=== PATIENT | male | born 1960 | race Caucasian/White ===

== ENCOUNTER 2016-09-17 08:49 | Emergency (ER) | payer OTHER ==
[~2016-09-17] VITALS: Ht 167.6 cm; Wt 63.0 kg
[~2016-09-17 08:49] MED LIST: ASPIRIN 81 MG TAB ONE; NITROGLYCERIN (SL) 0.4 MG TAB ONE
[2016-09-17 09:03] VITALS: Ht 167.6 cm; Wt 63.0 kg
[2016-09-17 09:09] LABS: ADD SCAN DIFF NO
--- NOTE | 2016-09-17 09:09 | RADRPT ---
PROCEDURE: XR Chest. CLINICAL INDICATION: Code STEMI TECHNIQUE: Single frontal view of the chest was obtained COMPARISON: No. FINDINGS: The soft tissues are normal. The bony elements are normal. There is a poor inspiratory effort. Th e the heart, cardiomediastinal silhouette and hilar structures are normal. The pulmonary vasculature is There is a left-sided aorta. The lungs are clear. The costophrenic angles are normal. IMPRESSION: 1. There is no evidence of active cardiopulmonary disease allowing for poor inspiratory effort. RPTAT:AAJJ Physician Thien Date Time Electronically viewed and signed by Physician Thien on 09/17/2016 09:09 /
[2016-09-17 09:10] LABS: BASOPHIL # 0.1 10^3/ul (0.0-0.1); BASOPHILS % 0.3 % (0.0-2.0); EOSINOPHILS # 0.2 10^3/ul (0.0-0.5); EOSINOPHILS % 0.9 % (0.0-7.0); HEMATOCRIT 45.4 % (42.0-52.0); HEMOGLOBIN 15.5 g/dl (14.0-18.0); LYMPHOCYTES # 2.6 10^3/ul (0.8-2.9); LYMPHOCYTES % 15.4 % (15.0-51.0); MEAN CORPUSCULAR HEMOGLOBIN 31.9 pg (29.0-33.0); MEAN CORPUSCULAR HGB CONC 34.1 g/dl (32.0-37.0); MEAN CORPUSCULAR VOLUME 93.4 fl (82.0-101.0); MEAN PLATELET VOLUME 9.5 fl (7.4-10.4); MONOCYTE # 1.4 10^3/ul (0.3-0.9); MONOCYTES % 8.2 % (0.0-11.0); NEUTROPHIL # 12.7 10^3/ul (1.6-7.5); NEUTROPHILS % 74.9 % (39.0-77.0); PLATELET COUNT 323 10^3/UL (140-415); RED BLOOD COUNT 4.86 10^6/ul (4.70-6.10); RED CELL DISTRIBUTION WIDTH 12.4 % (11.5-14.5)
[2016-09-17 09:11] VITALS: TEMP 98.6
[2016-09-17] MEDS ORDERED: morphine 4 MG/ML VIAL IV STA (09:11)
[2016-09-17 09:23] LABS: INR 1.01; PROTIME 13.3 Sec (12.2-14.2)
[2016-09-17 09:24] LABS: PARTIAL THROMBOPLASTIN TIME 27.6 Sec (25.0-35.0)
[2016-09-17 09:28] LABS: CHLORIDE 101 mmol/L (97-110); POTASSIUM 4.3 mmol/L (3.5-5.1); SODIUM 136 mmol/L (135-144)
[2016-09-17 09:30] LABS: CREATINE KINASE 54 IU/L (23-200); CREATININE 0.69 mg/dl (0.61-1.24)
[2016-09-17] MEDS ORDERED: HEPARIN 1000 UNITS/ML 10 ML INJ IV ONE (09:30)
[2016-09-17 09:31] LABS: ANION GAP 11 (8-16); BLOOD UREA NITROGEN 13 mg/dl (7-20); CALCIUM 9.2 mg/dl (8.4-10.2); CARBON DIOXIDE 28 mmol/L (21-31); GLUCOSE 147 mg/dl (70-220)
[2016-09-17] MEDS ORDERED: ONDANSETRON 4 MG INJ IV STA (09:46)
[2016-09-17 09:53] LABS: CK-MB 0.28 ng/ml (0.0-2.4); TROPONIN-I < 0.012 ng/ml (0.00-0.12)
--- NOTE | 2016-09-17 09:57 | ERA ---
ER Documentation Chief Complaint Date/Time DATE: 09/17/16 TIME: 09:53 Chief Complaint BIB RA FOR EVAL OF CP X 12 HOURS PRESSURE LIKE. HPI HPI: Patient is a 55-year-old male who presents with sudden onset, constant, dull, severe, substernal chest pain since 8 PM last night. He states that the pain is worse when he takes a deep inspiration and when he lies flat. Pain radiates to bilateral shoulders. No radiation to the back or epigastrium. No radiation to the arms or neck. No nausea, vomiting, diaphoresis, cough, fever. Patient does report shortness of breath due to pain limiting inspiration. Patient denies prior history of similar symptoms. ROS All systems reviewed and are negative except as per history of present illness. Medications Home Meds Active Scripts Aspirin* (Aspirin*) 325 Mg Tablet, 325 MG PO DAILY, #7 TAB Prov:NEVIN OLIVEIRA MD 09/17/16 Allergies Allergies: Coded Allergies: No Known Allergy (Unverified , 09/17/16) PMhx/Soc Past medical history: None Past surgical history: None Social history: Tobacco smoker History of Surgery: No Anesthesia Reaction: No Hx Neurological Disorder: No Hx Respiratory Disorders: No Hx Cardiac Disorders: No Hx Psychiatric Problems: No Hx Miscellaneous Medical Probl: No Hx Alcohol Use: Yes Hx Substance Use: No Hx Tobacco Use: Yes Smoking Status: Current every day smoker FmHx Family History: No coronary disease, No diabetes Physical Exam Vitals Vital Signs Date Time Temp Pulse Resp B/P Pulse Ox O2 Delivery O2 Flow Rate FiO2 09/17/16 13:00 85 18 115/76 100 Nasal Cannula 3.0 09/17/16 11:00 89 20 112/80 100 Nasal Cannula 3.0 09/17/16 10:00 83 18 142/75 100 Nasal Cannula 3.0 09/17/16 10:00 90 19 107/74 100 Nasal Cannula 3.0 09/17/16 09:30 89 16 122/90 100 Nasal Cannula 3.0 09/17/16 09:11 98.6 101 20 137/97 100 Nasal Cannula 3.0 09/17/16 09:09 Nasal Cannula 3 09/17/16 09:03 94 20 137/97 97 Physical Exam Const: Alert, appears in mild pain Head: Atraumatic Eyes: Normal Conjunctiva ENT: Normal External Ears, Nose and Mouth. Neck: Full range of motion. No meningismus. Resp: Clear to auscultation bilaterally Cardio: Regular rate and rhythm, no murmurs, no gallop, pulses equal and 4 extremities Abd: Soft, non tender, non distended. No pulsatile mass Skin: No petechiae or rashes Back: No midline or flank tenderness Ext: No cyanosis, or edema Neur: Awake and alert, cranial nerves II through XII intact bilaterally, strength and sensation intact in 4 extremities Psych: Normal Mood and Affect Result Diagram: 09/17/16 0859 09/17/16 0859 Results 24 hrs Laboratory Tests Test 09/17/16 08:59 09/17/16 09:14 White Blood Count 17.010^3/ul Red Blood Count 4.8610^6/ul Hemoglobin 15.5g/dl Hematocrit 45.4% Mean Corpuscular Volume 93.4fl Mean Corpuscular Hemoglobin 31.9pg Mean Corpuscular Hemoglobin Concent 34.1g/dl Red Cell Distribution Width 12.4% Platelet Count 33216^3/UL Mean Platelet Volume 9.5fl Neutrophils % 74.9% Lymphocytes % 15.4% Monocytes % 8.2% Eosinophils % 0.9% Basophils % 0.3% Nucleated Red Blood Cells % 0.0/100WBC Neutrophils # 12.710^3/ul Lymphocytes # 2.610^3/ul Monocytes # 1.410^3/ul Eosinophils # 0.210^3/ul Basophils # 0.110^3/ul Nucleated Red Blood Cells # 0.010^3/ul Prothrombin Time 13.3Sec Prothrombin Time Ratio 1.0 INR International Normalized Ratio 1.01 Activated Partial Thromboplast Time 27.6Sec Sodium Level 136mmol/L Potassium Level 4.3mmol/L Chloride Level 101mmol/L Carbon Dioxide Level 28mmol/L Anion Gap 11 Blood Urea Nitrogen 13mg/dl Creatinine 0.69mg/dl Glucose Level 147mg/dl Calcium Level 9.2mg/dl Creatine Kinase 54IU/L Creatine Kinase Index 0.5 Creatinine Kinase MB (Mass) 0.28ng/ml Troponin I < 0.012ng/ml D-Dimer 343.60ng/ml D-Dimer Comment Current Medications Medications (Trade) Dose Ordered Sig/Emeli Route PRN Reason Start Time Stop Time Status Last Admin Dose Admin Morphine Sulfate (morphine) 4 mg ONCE STAT IV 09/17/16 09:11 09/17/16 09:16 DC 09/17/16 09:20 Heparin Sodium (Porcine) (Heparin (1000 Units/ml)) 3,800 unit ONCE ONCE IV 09/17/16 09:30 09/17/16 09:31 DC 09/17/16 09:22 Ondansetron HCl (Zofran Inj) 4 mg ONCE STAT IV 09/17/16 09:46 09/17/16 09:50 DC Hydromorphone HCl (Dilaudid) 1 mg ONCE STAT IV 09/17/16 12:13 09/17/16 12:14 DC Procedures/MDM EKG read by me: Time 857, rate 101 [place]: Normal Intervals: Normal ST-T waves: Nonspecific ST changes in inferior leads not consistent with STEMI Ectopy: No Poor R-wave progression Impression: Nonspecific changes, no STEMI, OK depressions in inferior leads and V3 Chest x-ray: No acute intra-thoracic abnormality MDM: Patient is a 55-year-old male who presents with 12 hours of constant chest pain. Initially because a code STEMI; however, on my review of serial EKGs there is no evidence of ST elevation. I discussed the EKGs and sent a copy to Dr. Vargas, who reviewed the EKG and agrees that there is no evidence of STEMI. The patient reports that pain is pleuritic in nature, and somewhat positional, worse when lying down. Troponin and CK-MB are negative in the setting of 12 hours of constant pain. D-dimer is negative and patient is low risk. There are no features concerning for aortic dissection. Chest x-ray is unremarkable. There is no abdominal pain or tenderness on exam. I plan on admitting the patient for further cardiac workup, but the patient refused admission. I discussed risks and benefits of admission and residual risk of OR, and the patient continues to refuse admission. Dr. Malik saw the patient in the ER, and it was his impression that the patient's symptoms are likely due to pericarditis. On further review of the EKG, there are signs of OK depression in inferior leads and in lead V3, with which are consistent with this diagnosis. I agree that the patient's symptoms do not sound anginal in nature and are more suggestive of pericarditis or pleurisy. Given negative cardiac markers and greater than 12 hours of symptoms and patient refusal of admission, I believe it is reasonable to discharge the patient with outpatient follow-up, which Dr. Malik and will arrange. I will give the patient full dose aspirin for symptoms until cardiology can evaluate the patient in 2 days. I have advised the patient and family they should return to the ER immediately for any new or worsening symptoms. Patient smokes cigarettes, but has no other cardiac risk factors. Patient does have leukocytosis, but no fever. This is nonspecific but could be seen in the setting of acute pericarditis. Departure Diagnosis: Primary Impression: Chest pain Qualified Code: R07.89 - Other chest pain Additional Impression: Pericarditis Qualified Code: I30.9 - Acute pericarditis, unspecified type Condition: NEVIN Clements MD Sep 17, 2016 09:57
[2016-09-17 11:15] LABS: D-DIMER 343.6 ng/ml (<460)
[2016-09-17] MEDS ORDERED: HYDROmorphONE 1 MG/ML SYG IV STA (12:13)
[2016-09-17 13:00] VITALS: BP 115/76; PULSE 85; RESP 18
[2016-09-17] MEDS ORDERED: ASPI325T4 PO (13:00)
== END 2016-09-17 13:28 | disposition home or self-care (01) ==
LOC: E/R 08:49
DX: R07.89 Other chest pain (principal); I30.9 Acute pericarditis, unspecified; F17.210 Nicotine dependence, cigarettes, uncomplicated
CPT/HCPCS: 71010; 80048; 82550; 82553; 84484; 85025; 85378; 85610; 85730; 93005; 96374; 96375; 99285; J1644; J2270; J2405; J1170

== ENCOUNTER 2016-10-01 14:06 | Observation (INO) | payer OTHER ==
[~2016-10-01] VITALS: Ht 165.1 cm; Wt 65.6 kg
[~2016-10-01 14:06] MED LIST changes: +ASPI325T4 PO; -ASPIRIN 81 MG TAB ONE; -NITROGLYCERIN (SL) 0.4 MG TAB ONE
[2016-10-01] MEDS ORDERED: SODIUM CHLORIDE 0.9% 1L BAG IV* STA (14:42)
[2016-10-01 14:47] LABS: ADD SCAN DIFF NO
[2016-10-01 14:52] LABS: BASOPHIL # 0.1 10^3/ul (0.0-0.1); BASOPHILS % 0.5 % (0.0-2.0); EOSINOPHILS # 0.2 10^3/ul (0.0-0.5); EOSINOPHILS % 1.2 % (0.0-7.0); HEMOGLOBIN 13.5 g/dl (14.0-18.0); LYMPHOCYTES # 2.7 10^3/ul (0.8-2.9); LYMPHOCYTES % 21.7 % (15.0-51.0); MEAN CORPUSCULAR HEMOGLOBIN 30.1 pg (29.0-33.0); MEAN CORPUSCULAR HGB CONC 32.1 g/dl (32.0-37.0); MEAN CORPUSCULAR VOLUME 93.5 fl (82.0-101.0); MEAN PLATELET VOLUME 9.8 fl (7.4-10.4); MONOCYTE # 0.8 10^3/ul (0.3-0.9); NEUTROPHIL # 8.8 10^3/ul (1.6-7.5); PLATELET COUNT 533 10^3/UL (140-415); RED BLOOD COUNT 4.49 10^6/ul (4.70-6.10); WHITE BLOOD COUNT 12.5 10^3/ul (4.8-10.8)
[2016-10-01] MEDS ORDERED: IBUPROFEN 600 MG TAB PO ONE (15:00)
[2016-10-01] MEDS ORDERED: CEFEPIME 1GM/50 ML (PMX) 50 ML IVPB ONE (15:00)
[2016-10-01] MEDS ORDERED: VANCOMYCIN 1 GM (PMX) 250 ML IVPB ONE (15:00)
[2016-10-01 15:01] LABS: ALBUMIN 3.8 g/dl (3.3-4.9)
[2016-10-01 15:02] LABS: CHLORIDE 97 mmol/L (97-110); INR 1.16; POTASSIUM 3.6 mmol/L (3.5-5.1); PROTIME 14.9 Sec (12.2-14.2); PT RATIO 1.2; SODIUM 142 mmol/L (135-144)
[2016-10-01 15:03] LABS: PARTIAL THROMBOPLASTIN TIME 32.9 Sec (25.0-35.0)
[2016-10-01 15:04] LABS: ANION GAP 20 (8-16); ASPARTATE AMINO TRANSFERASE 70 IU/L (15-46); BILIRUBIN,INDIRECT 0.3 mg/dl (0-1.1); BILIRUBIN,TOTAL 0.3 mg/dl (0.2-1.3); CARBON DIOXIDE 29 mmol/L (21-31); CREATININE 0.74 mg/dl (0.61-1.24)
[2016-10-01 15:05] LABS: ALANINE AMINOTRANSFERASE 153 IU/L (13-69); ALBUMIN/GLOBULIN RATIO 0.97; ALKALINE PHOSPHATASE 125 IU/L (42-121); BLOOD UREA NITROGEN 13 mg/dl (7-20); CALCIUM 9.5 mg/dl (8.4-10.2); GLUCOSE 164 mg/dl (70-220); TOTAL PROTEIN 7.7 g/dl (6.1-8.1)
[2016-10-01] MEDS ORDERED: AMO500 PO (15:09)
[2016-10-01] MEDS ORDERED: RANI150T9 PO (15:11)
[2016-10-01] MEDS ORDERED: PRED10TA PO (15:11)
[2016-10-01] MEDS ORDERED: FLUT16SP17 NASAL (15:12)
[2016-10-01] MEDS ORDERED: IOHEXOL 100 ML ONE (15:14)
[2016-10-01] MEDS ORDERED: SOD CHLORIDE 0.9% 100 ML ONE (15:14)
[2016-10-01 15:20] LABS: TROPONIN-I < 0.012 ng/ml (0.00-0.12)
[2016-10-01 15:34] LABS: ADD UMIC YES; URINE BILIRUBIN (Dip) NEGATIVE (NEGATIVE); URINE BLOOD (Dip) 1+ (NEGATIVE); URINE COLOR LT. YELLOW (YELLOW); URINE GLUCOSE (Dip) NEGATIVE (NEGATIVE); URINE KETONES (Dip) NEGATIVE (NEGATIVE); URINE LEUKOCYTE ESTERASE (Dip) NEGATIVE (NEGATIVE); URINE NITRITE (Dip) NEGATIVE (NEGATIVE); URINE TOTAL PROTEIN (Dip) TRACE (NEGATIVE); URINE UROBILINOGEN (Dip) 0.2 E.U./dL (0.1-1.0)
--- NOTE | 2016-10-01 15:36 | RADRPT ---
PROCEDURE: CT Pulmonary Angiogram. CLINICAL INDICATION: Chest pain and shortness of breath. TECHNIQUE: CT pulmonary angiogram and a CT scan of the chest with contrast was performed. The pat ient was scanned following the uncomplicated intravenous administration of 100 cc of Omnipaque-350 i ntravenous contrast. 2-D coronal reformatted images were obtained from the axial source images. In addition, 3-D post processing was performed. Total exam DLP is 450.41 mGy-cm. CTDIvol is 56.34 mG y. One or more of the following dose reduction techniques were used: Automated exposure control, ad justment of the mA and/or kV according to patient size, use of iterative reconstruction technique. COMPARISON: None available. FINDINGS: The pulmonary arteries are normal with no filling defect or lack of enhancement to suggest pulmonary artery embolism. There is mild atelectasis at the right lung base and moderate atelectasis in the left lower lobe pos teriorly. The lungs are otherwise clear with no other airspace or interstitial disease. There is no pulmonary nodule or mass lesion. There is no pneumothorax. There is no mediastinal or hilar lymphadenopathy or mass. There is a small right pleural effusion and moderate left pleural effusion. There is also a moderat e pericardial effusion. The heart size is normal. There is mild coronary artery calcification. The thoracic aorta is normal with no aneurysm or dissection. Images through the upper abdomen demonstrate normal visualized portions of the liver, spleen, and ad renals. There is a small benign cyst superiorly in the left kidney measuring 2.5 cm. There are mild degenerative changes of the spine. There is no fracture or lytic lesion. IMPRESSION: 1. Normal CT pulmonary angiogram with no evidence of pulmonary artery embolism. 2. Mild atelectasis at the right lung base and moderate atelectasis in the left lower lobe posterio rly. 3. Small right pleural effusion and moderate left pleural effusion. 4. Moderate pericardial effusion. 5. Mild coronary artery calcification. 6. Small benign cyst superiorly in the left kidney. 7. Mild degenerative changes spine. Call report: A call report of the findings was made to Dr. Soni on 10/01/2016 at 1540 hours. RPTAT: QQ .Merrill Sloan MD, Date Time Electronically viewed and signed by .Merrill Sloan MD, on 10/01/2016 15:36 .R/
[2016-10-01 15:42] LABS: BACTERIA,URINE FEW; MUCUS,URINE MODERATE; TRANSITIONAL EPI CELLS,URINE FEW; URINE RBCS 0-2 /HPF (0)
[2016-10-01 16:38] LABS: FREE T3 3.75 pg/ml (2.77-5.27)
[2016-10-01 16:52] LABS: THYROID STIMULATING HORMONE 0.865 MIU/L (0.465-4.680)
[2016-10-01] MEDS ORDERED: ASPIRIN 81 MG TAB PO ONE (17:00)
[2016-10-01 17:57] VITALS: TEMP 98.5
--- NOTE | 2016-10-01 18:21 | CONS ---
DATE OF ADMISSION: 10/01/2016 DATE OF CONSULTATION: 10/01/2016 REASON FOR CONSULTATION: Pericardial effusion. CHIEF COMPLAINT: Chest pain. HISTORY OF PRESENT ILLNESS: Thank you for this referral. History obtained from the patient and rev iew of the chart, discussion with Dr. Soni. ____ the old chart. This is a pleasant 55-year-ol d [place]is[place] gentleman with no past cardiac history who has been having chest pain developing over the past week. The patient apparently was here in the ER on September 17 for similar complaints of chest pain. At that time, EKG was concerning for ST elevation myocardial infarction, was felt to be most likely pericarditis. The patient did not need emergent cardiac catheterization at that time reporte dlmanisha; however, he did not want to stay for workup and he left. He came back today with complaint of shortness of breath and chest pain. Pain is worse apparently with breathing, is sharp. He is a poo r historian; however though. The patient's CT pulmonary angiogram was done which showed a moderate pericardial effusion as well as moderate pleural effusion. We were urgently contacted to evaluate the patient. PAST MEDICAL HISTORY: As above. SOCIAL HISTORY: The patient smokes. FAMILY HISTORY: No reported early coronary artery, denies any history rheumatological problem. MEDICATIONS AT HOME: As per medication reconciliation, personally reviewed. FAMILY HISTORY: No reported coronary artery disease. ALLERGIES: NO REPORTED ALLERGIES. REVIEW OF SYSTEMS: Otherwise negative. PHYSICAL EXAMINATION: VITAL SIGNS: Temperature 97.8, heart rate of 91, blood pressure 108/79, respiration rate of 20, sat urating 99%. HEENT: Normocephalic, atraumatic. No acute distress. CARDIOVASCULAR: Regular rate and rhythm, systolic murmur. PULMONARY: With no wheezes, mild rhonchi at the left base. GASTROINTESTINAL: Soft, nontender. EXTREMITIES: No significant lower extremity edema. NEUROLOGIC: Awake and alert. PSYCHIATRIC: Calm, pleasant. LABORATORY: WBC of 12.5, hemoglobin 13.5, platelets of 533, ESRD 75. Sodium 142, potassium 3.6, BU N of 13, creatinine 0.75, glucose of 164, ALT of 153, AST of 70. Troponin less than 0.012. TSH is 0.8. Free T4 is 1.17. CT pulmonary angiogram shows no evidence of pulmonary embolism. Mild atelec tasis in the right lung base and left lower lobe posteriorly. Small right pleural effusion, moderat e left pleural effusion, moderate pericardial effusion. Echocardiogram was personally reviewed, whi ch showed preserved LV systolic function. There is small to probably moderate in some areas, of per icardial effusion. No evidence of cardiac tamponade. EKG shows sinus tachycardia. ASSESSMENT AND PLAN: 1. Pericardial effusion, small to moderate per echo with no signs of tamponade. 2. Pleural effusion. 3. Chest pain secondary to pericardial effusion and pericarditis. 4. Hyperglycemia. 5. Elevated liver function tests. RECOMMENDATIONS: Patient will be placed on NSAIDs. Rheumatological workup needs to be done, which will be deferred to the primary hospitalist. I will start the patient on colchicine as well. The p atient has denied any bleeding complications to me. We will monitor him. If the breathing gets wor se, consider thoracentesis. Dictated By: DENISHA GREEN/FRANCHESCA Conf#: [id number] DID#: [id number]
[2016-10-01 18:42] VITALS: Ht 165.1 cm; Wt 65.6 kg
[2016-10-01 18:43] VITALS: BP 112/72; PULSE 86; RESP 18
[2016-10-01 18:48] VITALS: PULSE 90
[2016-10-01] MEDS: PANTOPRAZOLE (EC) 40 MG TAB PO SCH (18:54)
--- NOTE | 2016-10-01 19:20 | ERA ---
ER Documentation Chief Complaint Date/Time DATE: 10/01/16 TIME: 18:43 Chief Complaint cp x 5 days HPI 55-year-old man complains of sharp inspiratory chest pain 5 days worse with coughing. He's had cough and shortness of breath for about 1 week and his PMD prescribed amoxicillin and azithromycin which he states he has been using without relief. He was seen and evaluated here 2 weeks ago for chest pain, cardiology was consulted and physicians agreed that there was no indication for emergent PTCA and there were no ST elevations on EKG at that time. There was concern for acute pericarditis given the EKG findings and patient was admitted from the emergency department although he left against radical advice prior to transfer to the floor. Patient states his symptoms initially improved but then got worse about 5-7 days ago. He's had no calf or leg swelling, no dizziness, no loss of consciousness, no vomiting or diarrhea, no abdominal pain. ROS All systems reviewed and are negative except as per history of present illness. Medications Home Meds Reported Medications Fluticasone Propionate* (Fluticasone Propionate* Nasal) 50 Mcg/[place] - 16 Gm [place].susp, 1 SPRAY NASAL BID, #1 BOTTLE TO EACH NOSTRIL 10/01/16 Ranitidine Hcl* (Zantac*) 150 Mg Tablet, 150 MG PO BID, #60 TAB 10/01/16 Prednisone* (Prednisone*) 10 Mg Tab, 10 MG PO DAILY, TAB 3TAB-2 DAYS, 2TAB-2 DAYS, 1TAB-2 DAYS 10/01/16 Amoxicillin* (Amoxicillin*) 500 Mg Cap, 500 MG PO TID, #30 CAP 10/01/16 Discontinued Scripts Aspirin* (Aspirin*) 325 Mg Tablet, 325 MG PO DAILY, #7 TAB Prov:NEVIN OLIVEIRA MD 09/17/16 Allergies Allergies: Coded Allergies: No Known Allergy (Unverified , 10/01/16) PMhx/Soc Hypertension, gastritis Medical and Surgical Hx: pt denies Medical Hx, pt denies Surgical Hx History of Surgery: No Anesthesia Reaction: No Hx Neurological Disorder: No Hx Respiratory Disorders: No Hx Cardiac Disorders: No Hx Psychiatric Problems: No Hx Miscellaneous Medical Probl: No Hx Alcohol Use: Yes (occassional) Hx Substance Use: No Hx Tobacco Use: Yes (quit 5 days ago) Smoking Status: Former smoker FmHx Family History: No diabetes Physical Exam Vitals Vital Signs Date Time Temp Pulse Resp B/P Pulse Ox O2 Delivery O2 Flow Rate FiO2 10/01/16 15:30 97.8 91 20 108/79 99 Room Air 10/01/16 14:12 97.8 106 24 112/89 99 Physical Exam GENERAL: Well-developed, well-nourished, febrile, dyspneic HEENT: Moist mucous membranes, pink conjunctiva, no cervical spine tenderness or step-off deformities, no goiter, no jaundice or icterus, extraocular movements intact without pain. No submandibular induration, and no pharyngeal erythema NEURO: Alert and oriented 3, cranial nerves II through XII intact bilaterally, pupils equal round reactive to light, no focal deficits or facial asymmetry, sensation intact distally Strength 5/5 in upper and lower extremities bilaterally CARDIAC: Tachycardic and regular, no murmurs rubs or gallops LUNGS: Clear bilaterally no wheezing crackles or stridor ABDOMEN: Soft nontender, no guarding, no rigidity, no rebound, no psoas sign no obturator sign. Normoactive bowel sounds SKIN: Warm and dry to touch, no abrasions, contusions, or hematomas, no lacerations, no ecchymosis, no target lesions, and without ulcers EXTREMITIES: No clubbing cyanosis or edema, calves are bilaterally symmetrical, no Homans sign, no popliteal cord sign. Distal pulses equal and bilateral PSYCH: Normal affect without agitation or irritability Result Diagram: 10/01/16 1426 10/01/16 1426 Results 24 hrs Laboratory Tests Test 10/01/16 14:26 10/01/16 15:00 White Blood Count 12.510^3/ul Red Blood Count 4.4910^6/ul Hemoglobin 13.5g/dl Hematocrit 42.0% Mean Corpuscular Volume 93.5fl Mean Corpuscular Hemoglobin 30.1pg Mean Corpuscular Hemoglobin Concent 32.1g/dl Red Cell Distribution Width 12.0% Platelet Count 13900^3/UL Mean Platelet Volume 9.8fl Neutrophils % 70.0% Lymphocytes % 21.7% Monocytes % 6.0% Eosinophils % 1.2% Basophils % 0.5% Nucleated Red Blood Cells % 0.0/100WBC Neutrophils # 8.810^3/ul Lymphocytes # 2.710^3/ul Monocytes # 0.810^3/ul Eosinophils # 0.210^3/ul Basophils # 0.110^3/ul Nucleated Red Blood Cells # 0.010^3/ul Erythrocyte Sedimentation Rate 75mm/Hr Prothrombin Time 14.9Sec Prothrombin Time Ratio 1.2 INR International Normalized Ratio 1.16 Activated Partial Thromboplast Time 32.9Sec Sodium Level 142mmol/L Potassium Level 3.6mmol/L Chloride Level 97mmol/L Carbon Dioxide Level 29mmol/L Anion Gap 20 Blood Urea Nitrogen 13mg/dl Creatinine 0.74mg/dl Glucose Level 164mg/dl Lactic Acid Level 1.7mmol/L Calcium Level 9.5mg/dl Total Bilirubin 0.3mg/dl Direct Bilirubin 0.00mg/dl Indirect Bilirubin 0.3mg/dl Aspartate Amino Transf (AST/SGOT) 70IU/L Alanine Aminotransferase (ALT/SGPT) 153IU/L Alkaline Phosphatase 125IU/L Troponin I < 0.012ng/ml Total Protein 7.7g/dl Albumin 3.8g/dl Globulin 3.90g/dl Albumin/Globulin Ratio 0.97 Lipase 102U/L Thyroid Stimulating Hormone (TSH) 0.865MIU/L Free Thyroxine 1.17ng/dl Free Triiodothyronine (T3) pg/mL 3.75pg/ml Urine Color LT. YELLOW Urine Clarity SLIGHTLY CLOUDY Urine pH 5.5 Urine Specific [place] 1.020 Urine Ketones NEGATIVE Urine Nitrite NEGATIVE Urine Bilirubin NEGATIVE Urine Urobilinogen 0.2 E.U./dL Urine Leukocyte Esterase NEGATIVE Urine Microscopic RBC 0-2/HPF Urine Microscopic WBC 0-2/HPF Urine Transitional Epithelial Cells FEW Urine Bacteria FEW Urine Mucus MODERATE Urine Hemoglobin 1+ Urine Glucose NEGATIVE% Urine Total Protein TRACE Current Medications Medications (Trade) Dose Ordered Sig/Emeli Route PRN Reason Start Time Stop Time Status Last Admin Dose Admin Sodium Chloride 2000 ml 2,000 ml BOLUS OVER 2 HOURS STAT IV* 10/01/16 14:42 10/01/16 14:44 DC 10/01/16 15:13 Vancomycin HCl 250 ml @ 125 mls/hr ONCE ONCE IVPB 10/01/16 15:00 10/01/16 16:59 DC 10/01/16 15:45 Cefepime HCl (Maxipime 1gm/50 ml (Pmx)) 50 ml @ 100 mls/hr ONCE ONCE IVPB 10/01/16 15:00 10/01/16 15:29 DC 10/01/16 15:14 Ibuprofen (Motrin) 600 mg ONCE ONCE PO 10/01/16 15:00 10/01/16 15:01 DC 10/01/16 15:14 IV Flush 10 ml 10 ml STK-MED ONCE .ROUTE 10/01/16 15:14 10/01/16 15:15 DC Sodium Chloride 100 ml @ ud STK-MED ONCE .ROUTE 10/01/16 15:14 10/01/16 15:15 DC Iohexol (Omnipaque) 100 ml @ ud STK-MED ONCE .ROUTE 10/01/16 15:14 10/01/16 15:15 DC Aspirin (Aspirin) 81 mg ONCE ONCE PO 10/01/16 17:00 10/01/16 17:01 DC 10/01/16 17:21 Procedures/MDM IV line was established patient was placed on cardiac nurse practitioner rhythm strip revealed a sinus tachycardia at 120 bpm with upright P and T waves. Patient was febrile. Blood and urine cultures have been ordered results are pending and will follow-up. I administered 2 L normal saline intravenously, ibuprofen 600 mg by mouth, vancomycin 1 g IV and cefepime 1 g IV. EKG performed, read by me reveals a sinus tachycardia at 112 bpm, normal axis, narrow QRS complex, no concerning ST elevations or depressions noted. CT angiogram of the chest was performed is negative for pulmonary embolism although there was moderately sized pericardial effusion and bilateral pleural effusions. Please refer to radiologist dictation for full report. I ordered a stat echocardiogram to be read by on-call manager recovery Dr. Marroquin, and spoke to him again the patient's presentation and symptomatology. He kindly agreed to evaluate the patient at the bedside and consulted and post admission. CBC reveals a leukocytosis at 13 although family members state earlier white count was 17. Electrolytes were unremarkable, troponin was negative, lactic acid was low at 1.7. Liver function tests were unremarkable on the urine analysis was negative for infection. Thyroid panel was within normal limits. Cardiac Critical Care: Time: 40 minutes, this was time separate from other procedures. Treatments/Evaluations: Close monitoring and treatment of unstable vital signs, cardiorespiratory, and neurologic status, while maintaining tight balance of fluid, respiratory, and cardiac interventions. Patient admitted to telemetry setting under Dr. Malik Departure Diagnosis: Primary Impression: Acute pericardial effusion Additional Impressions: Pleural effusion Chest pain Qualified Code: R07.1 - Chest pain on breathing Condition: CHANELL Segundo MD Oct 01, 2016 19:20
[2016-10-01 20:00] VITALS: BP 100/68; PULSE 95; RESP 20
[2016-10-01 20:19] VITALS: BP 101/68; RESP 18
[2016-10-01 20:23] VITALS: PULSE 90
--- NOTE | 2016-10-01 20:30 | HP ---
Date/Time of Note Date/Time of Note DATE: 10/01/16 TIME: 20:18 Assessment/Plan VTE Prophylaxis VTE Prophylaxis Intervention: SCD's Assessment/Plan Assessment/Plan [facility] 55yo man with pericardial effusion and bilateral pleural effusions on CT angiogram. Troponin normal. No evidence for cardiac ischemia. Differential diagnosis includes viral infection (eg. coxsackie virus), tuberculosis, Gram- positive cocci, or atypical infection. Rheumatic disease in the lupus spectrum is a consideration, though there are really no other indications of established lupus. Malignant effusion is also a concern, though he doesn't have any recent weigh loss and the fever/sweats/leukocytosis would mitigate more toward infection or rheumatic disease. No evidence of tamponade for now, or of a focal pulmonary infiltrate. * Placed under telemetry observation status. * My thanks for Dr. Marroquin for his expeditious consult * Agree with trial of colchicine * Discontinue steroids * Also start on naproxen 375mg PO BID * Blood tests to include uric acid, Quantiferon-gold (in light of previous BCG vaccination), PSA, ALEXANDRA/dsDNA/Garcia antibodies. * Consider ultrasound-guided thoracentesis to send for culture tomorrow. * Hold off on empiric antibiotics. * SCDs for DVT prophylaxis. Famotidine for GI prophylaxis. Henrik Malik MD PhD [phone] HPI/ROS Admit Date/Time Admit Date/Time Oct 01, 2016 at 17:01 Hx of Present Illness Mr. Farley is a 55-year-old man familiar to me from his ER presentation two weeks ago with sustained positional chest pain. He has had some discomfort in the evenings ever since, with difficulty breathing and orthopnea that has disrupted his sleep. Last week his PCP started him on a course of azithromycin , which he said completely cleared up his symptoms. But the pain and dyspnea returned after the antibiotics were done, and he was then started on a course of amoxicillin and prednisone 10mg without improvement. Last night the pain was worse, and this morning even more pronounced. In retrospect he has been somewhat feverish and sweaty the past two weeks, but had no cough. He presented two weeks ago with 12 hours of constant chest pain, and was initially treated as a code STEMI. Dr. Vargas reviewed the EKGs, and felt that STEMI was unlikely. The pain was pleuritic in nature and somewhat positional, worse when lying down. Troponin and CK-MB were negative despite 12 hours of unremitting pain. D-dimer was negative, with low risk for pulmonary embolism. WBC were slightly elevated, but the chest x-ray showed no infiltrates or CHF. The patient refused admission then for monitoring, and I evaluated him in the ER. It was my impression that his EKG and symptoms were most compatible with pericarditis, with WI depression in the inferior leads and in lead V3. He was discharged home per his wishes with plans for cardiology outpatient follow-up. We talked about the smoking; he has no other cardiac risk factors. He attributed his illness to some exertion earlier this year, cutting down a tree that he thought had exposed him to considerable pollen. ROS No headache, visual change, nausea or other GI symptoms, dysuria or urethritis symptoms. PMH/Family/Social Social History Lived many years in [place] [facility], then in [place]. BCG vaccinations in both places. Large supportive family. Smoking Status: Current every day smoker Exam/Review of Systems Vital Signs Vitals Vital Signs Date Time Temp Pulse Resp B/P Pulse Ox O2 Delivery O2 Flow Rate FiO2 10/01/16 20:00 97.8 95 20 100/68 96 Room Air Exam Constitutional: alert, oriented, well developed Psych: nl mood/affect, no complaints Head: atraumatic, normocephalic Eyes: EOMI, PERRL, nl conjunctiva ENMT: mucosa pink and moist Neck: non-tender, supple, No bruits, No jvd, No masses, No nuchal rigidity, No thyromegaly Respiratory: other (Moderate dullness thru lower half of the left lung posteriorly, with decreased breath sounds but no change in vocal fremitus or egophony.) Cardiovascular: other (Tachycardic, with no murmur or rub.) Gastrointestinal: bowel sounds, nl liver, spleen, non-tender, soft, No ascites, No distended, No firm, No hepatomegaly, No mass, No rebound or guarding, No splenomegaly, No surgical scars, No tender Extremities: normal pulses, No calf tenderness, No clubbing, No cyanosis, No edema, No palpable cord, No pitting pedal edema, No tenderness Neurological: SYSTEMS REQUIREMENTS PLANNER II-XII intact, nl mental status, nl speech, nl strength Skin: diaphoresis, No ecchymosis, No laceration, No nl turgor, No puncture, No rash or lesions Lymph: nl lymph nodes Labs Result Diagram: 10/01/16 1426 10/01/16 1426 Medications Medications Current Medications Colchicine (Colchicine) 0.6 mg BID PO ; Start 10/01/16 at 21:00 Indomethacin (Indocin) 25 mg TID PO ; Start 10/01/16 at 21:00 Pantoprazole (Protonix Tab) 40 mg DAILY PO Last administered on 10/01/16t 18:54 ; Admin Dose 40 MG; Start 10/01/16 at 17:30 INA MALIK M.D. Oct 01, 2016 20:29
[2016-10-01] MEDS ORDERED: NACL 0.9% 3 ML SYG IV SCH (21:00)
[2016-10-01] MEDS ORDERED: HYDROCODONE/APAP (5/325) TAB PO PRN ×2 (21:00)
[2016-10-01] MEDS ORDERED: ACETAMINOPHEN 325 MG TAB PO PRN (21:00)
[2016-10-01] MEDS ORDERED: ONDANSETRON 4 MG TAB PO PRN (21:00)
[2016-10-01] MEDS ORDERED: LORAZEPAM 0.5 MG TAB PO PRN (21:00)
[2016-10-01] MEDS ORDERED: ZOLPIDEM 5 MG TAB PO PRN (21:00)
[2016-10-01] MEDS ORDERED: DOCUSATE SODIUM 100 MG CAP PO PRN (21:00)
[2016-10-01] MEDS: FLUTICASONE 0.05% 16 GM NAS SPRAY NASAL SCH (21:43)
[2016-10-01] MEDS: NAPROXEN 500 MG TAB PO SCH (21:44)
[2016-10-01] MEDS: FAMOTIDINE 20 MG TAB PO SCH (21:44)
[2016-10-01] MEDS: INDOMETHACIN 25 MG PO SCH (22:47)
[2016-10-01] MEDS: COLCHICINE 0.6 MG TAB PO SCH (22:47)
[2016-10-02] VITALS (10 sets, daily range): BP systolic 102–115; BP diastolic 58–75; PULSE 66–95; RESP 18–20
[2016-10-02 07:30] LABS: POTASSIUM 3.3 mmol/L (3.5-5.1)
[2016-10-02 07:33] LABS: CREATININE 0.65 mg/dl (0.61-1.24)
[2016-10-02 07:34] LABS: CALCIUM 9.1 mg/dl (8.4-10.2)
[2016-10-02 08:34] LABS: THYROID STIMULATING HORMONE 2.65 MIU/L (0.465-4.680)
[2016-10-02] MEDS: PANTOPRAZOLE (EC) 40 MG TAB PO SCH (09:24)
[2016-10-02] MEDS: FLUTICASONE 0.05% 16 GM NAS SPRAY NASAL SCH (09:24)
[2016-10-02] MEDS: COLCHICINE 0.6 MG TAB PO SCH (09:25)
[2016-10-02] MEDS: NAPROXEN 500 MG TAB PO SCH (09:25)
[2016-10-02] MEDS: FAMOTIDINE 20 MG TAB PO SCH (09:25)
[2016-10-02] MEDS: INDOMETHACIN 25 MG PO SCH ×2 (09:25→13:34)
[2016-10-02 09:45] LABS: ADD SCAN DIFF NO
[2016-10-02 09:54] LABS: BASOPHILS % 0.2 % (0.0-2.0); EOSINOPHILS # 0.3 10^3/ul (0.0-0.5); EOSINOPHILS % 2.3 % (0.0-7.0); HEMATOCRIT 37.3 % (42.0-52.0); HEMOGLOBIN 12.5 g/dl (14.0-18.0); LYMPHOCYTES # 3.1 10^3/ul (0.8-2.9); LYMPHOCYTES % 22.7 % (15.0-51.0); MEAN CORPUSCULAR HEMOGLOBIN 31.6 pg (29.0-33.0); MEAN CORPUSCULAR HGB CONC 33.5 g/dl (32.0-37.0); MEAN CORPUSCULAR VOLUME 94.4 fl (82.0-101.0); MEAN PLATELET VOLUME 9.6 fl (7.4-10.4); MONOCYTE # 0.8 10^3/ul (0.3-0.9); MONOCYTES % 5.4 % (0.0-11.0); NEUTROPHIL # 9.5 10^3/ul (1.6-7.5); NEUTROPHILS % 68.9 % (39.0-77.0); PLATELET COUNT 484 10^3/UL (140-415); RED BLOOD COUNT 3.95 10^6/ul (4.70-6.10); RED CELL DISTRIBUTION WIDTH 11.9 % (11.5-14.5); WHITE BLOOD COUNT 13.9 10^3/ul (4.8-10.8)
[2016-10-02 10:15] LABS: ALBUMIN 3.1 g/dl (3.3-4.9); BILIRUBIN,INDIRECT 0.1 mg/dl (0-1.1); BILIRUBIN,TOTAL 0.1 mg/dl (0.2-1.3); CREATINE KINASE < 20 IU/L (23-200); TOTAL PROTEIN 6.3 g/dl (6.1-8.1)
[2016-10-02 10:28] LABS: CK-MB < 0.22 ng/ml (0.0-2.4); TROPONIN-I < 0.012 ng/ml (0.00-0.12)
--- NOTE | 2016-10-02 15:03 | RADRPT ---
Echocardiogram Report Patient Name: DARRYL MARC Gender: Male Date: 1960 Study Date: 01-Oct-2016 Gift Shop Clerk: [facility] Location: [facility] Ref. Physician: CHANELL CORTES Quality: Good Procedures: Transthoracic echocardiogram with complete 2D, M-Mode, and doppler examination. Indications: Pericarditis. 2D/M Mode Doppler Measurement Value Normal Ranges Measurement Value Normal Ranges LVIDd 2D 4.0 3.5 - 5.6 cm AV Peak Berny 1.3 m/sec LVIDs 2D 2.9 2.1 - 4.1 cm AV Peak PG 6.8 mmHg LVPWd 2D 1.1 0.6 - 1.1 cm LVOT Peak Berny 0.8 m/sec IVSd 2D 1.1 0.6 - 1.1 cm LVOT Peak PG 2.9 mmHg AoR Diam 2D 2.4 2.0 - 3.7 cm MV E Peak Berny 0.5 m/sec EDV 2D 68.3 cm3 MV A Peak Berny 0.4 m/sec ESV 2D 24.3 cm3 MV E/A 1.1 MV Decel Time 144 msec MV Decel Dane 3 MV E/A 1.1 Findings Left Ventricle: Lower limits of normal systolic function. Normal left ventricular cavity size. Left ventricular wall thickness upper limits of normal. Ejection fraction is visually estimated at 50 %. Abnormal Diastolic Function. Right Ventricle: Normal right ventricular size. Normal right ventricular systolic function. Prominent moderator band - normal variant. Left Atrium: The left atrium is normal in size. Right Atrium: The right atrium is normal in size. RA Pressure=8. Mitral Valve: Mitral valve leaflets appear mildly thickened. Trace mitral regurgitation. Aortic Valve: Aortic valve opens normally. No aortic regurgitation. Tricuspid Valve: There is trace tricuspid regurgitation. Pulmonic Valve: There is trace to mild pulmonic regurgitation. Pericardium: Small pericardial effusion. Pleural effusion seen. Aorta: Normal aortic root. IVC: Dilated IVC with respiratory collapse consistent with elevated right atrial pressure. Conclusions 1.Lower limits of normal systolic function. Normal left ventricular cavity size. Left ventricular wall thickness upper limits of normal. Ejection fraction is visually estimated at 50 %. Abnormal Diastolic Function. 2.Mitral valve leaflets appear mildly thickened. Trace mitral regurgitation. 3.Aortic valve opens normally. No aortic regurgitation. 4.There is trace tricuspid regurgitation. 5.Dilated IVC with respiratory collapse consistent with elevated right atrial pressure. 6.Small pericardial effusion. Pleural effusion seen. Electronically Signed By: Kaushal Marroquin 02-Oct-2016 15:02:58 -0700 Patient Name: DARRYL MARC Study Date: 01-Oct-2016 [id number]
--- NOTE | 2016-10-02 16:29 | PN ---
DATE: 10/02/2016 CARDIOLOGY FOLLOWUP SUBJECTIVE: Discussed with the staff, Dr. Malik, discussed with multiple family members at the bed side, daughter and . The patient said that he feels fine and he wants to leave. Family has mul tiple questions and requests including they want pulmonary evaluation. MEDICATIONS: Reviewed. PHYSICAL EXAMINATION: VITAL SIGNS: Temperature 98, heart rate of 81, blood pressure 110/60, respiration rate of 18, satur ating 96%. HEENT: Normocephalic, atraumatic. No acute distress. Pupils are equal. CARDIOVASCULAR: Regular rate and rhythm. PULMONARY: With mild rhonchi at the left base. GASTROINTESTINAL: Soft, nontender. EXTREMITIES: With lower extremity edema. NEUROLOGIC: Awake and alert. PSYCHIATRIC: Appears very anxious. LABORATORY: WBC of 13.9, hemoglobin 12.5, platelets of 484. Sodium 141, potassium 3.3, BUN of 13, creatinine 0.65, glucose of 126. ALT of 214, AST of 104. ProBNP of 492. TSH is 2.65. Troponin le ss than 0.112. ASSESSMENT AND PLAN: 1. Pericarditis. 2. Pericardial effusion. 3. Pleural effusion. 4. Elevated LFTs. 5. Chest pain secondary to above, which has resolved. RECOMMENDATIONS: I will discontinue the Indocin and keep the patient on Naprosyn since he was alrea dy on it. Colchicine will be continued. I have recommended a repeat echo tomorrow to follow for pe ricardial effusion. Dictated By: DENISHA GUAJARDO MD AV/FRANCHESCA Conf#: [id number] DID#: [id number] CC: INA MALIK MD;*EndCC*
--- NOTE | 2016-10-02 17:00 | DS ---
Date/Time of Note Date/Time of Note DATE: 10/02/16 TIME: 16:50 Discharge Summary Admission/Discharge Info Admit Date/Time Oct 01, 2016 at 17:01 Discharge Date/Time Oct 02, 2016 Final Diagnosis Pericarditis with pericardial and pleural effusions Patient Condition: Good Consults Cardiology (Denisha Marroquin MD) Procedures CT angiogram Hx of Present Illness Mr. Farley is a 55-year-old man familiar to me from his ER presentation two weeks ago with sustained positional chest pain. He has had some discomfort in the evenings ever since, with difficulty breathing and orthopnea that has disrupted his sleep. Last week his PCP started him on a course of azithromycin , which he said completely cleared up his symptoms. But the pain and dyspnea returned after the antibiotics were done, and he was then started on a course of amoxicillin and prednisone 10mg without improvement. Last night the pain was worse, and this morning even more pronounced. In retrospect he has been somewhat feverish and sweaty the past two weeks, but had no cough. He presented two weeks ago with 12 hours of constant chest pain, and was initially treated as a code STEMI. Dr. Vargas reviewed the EKGs, and felt that STEMI was unlikely. The pain was pleuritic in nature and somewhat positional, worse when lying down. Troponin and CK-MB were negative despite 12 hours of unremitting pain. D-dimer was negative, with low risk for pulmonary embolism. WBC were slightly elevated, but the chest x-ray showed no infiltrates or CHF. The patient refused admission then for monitoring, and I evaluated him in the ER. It was my impression that his EKG and symptoms were most compatible with pericarditis, with HI depression in the inferior leads and in lead V3. He was discharged home per his wishes with plans for cardiology outpatient follow-up. We talked about the smoking; he has no other cardiac risk factors. He attributed his illness to some exertion earlier this year, cutting down 12 trees that he thought had exposed him to considerable pollen. Hospital Course Differential diagnosis includes viral infection (eg. coxsackie virus), tuberculosis, Gram-positive cocci, or atypical infection. Rheumatic disease in the lupus spectrum is a consideration, though there are really no other indications of established lupus. Malignant effusion is also a concern, though he doesn't have any recent weight loss and the fever/sweats/leukocytosis would mitigate more toward infection or rheumatic disease. No evidence of tamponade for now, or of a focal pulmonary infiltrate. He was placed under telemetry observation status, and evaluated for cardiology by Dr. Marroquin. We began a trial of colchicine daily and naproxen 375mg PO BID, with complete resolution of his pain. I discontinued the steroids and amoxicillin started by the PCP office. Several blood tests are pending, including Quantiferon-gold (in light of previous BCG vaccination), PSA, and ALEXANDRA/ dsDNA/Garcia antibodies. Uric acid level was normal. I urged him to undergo an ultrasound-guided thoracentesis to send for culture and cytology, but he adamantly declined. He was treated with SCDs for DVT prophylaxis and famotidine for GI prophylaxis. This morning he had no pain and no dyspnea. He was seen by Dr. Marroquin, who recommended echocardiogram in follow-up next week. PA/lateral chest x-ray showed persistence of the bilateral pleural effusions, left more than right, but a slight interval decrease in cardiac silhouette size suggesting a decrease in pericardial effusion. On physical exam, he appeared comfortable, breathing on room air. Constitutional: alert, oriented, well developed Psych: nl mood/affect, no complaints Head: atraumatic, normocephalic Eyes: EOMI, PERRL, nl conjunctiva ENMT: mucosa pink and moist Neck: non-tender, supple, No bruits, No jvd, No masses, No nuchal rigidity, No thyromegaly Respiratory: other (Moderate dullness thru lower half of the left lung posteriorly, with decreased breath sounds but no change in vocal fremitus or egophony.) Cardiovascular: Normal rate, regular rhythm, no murmur or rub Gastrointestinal: bowel sounds, nl liver, spleen, non-tender, soft, no hepatosplenomegaly. Extremities: normal pulses, no calf tenderness, No clubbing, No cyanosis, No edema, No palpable cord, No pitting pedal edema, No tenderness Neurological: RECLAMATION SUPERVISOR II-XII intact, nl mental status, nl speech, nl strength Skin: No ecchymosis, No laceration, No nl turgor, No puncture, No rash or lesions Lymph: nl lymph nodes Home Meds Active Scripts Colchicine* (Colcrys*) 0.6 Mg Tablet, 0.6 MG PO DAILY for 30 Days, #30 TAB Prov:INA JONES M.D. 10/02/16 Famotidine* (Famotidine*) 20 Mg Tablet, 20 MG PO Q12 for 30 Days, #60 TAB Prov:INA JONES M.D. 10/02/16 Naproxen* (Naprosyn*) 500 Mg Tablet, 500 MG PO BID for 30 Days, #60 TAB Patient to take twice daily for 10 days, and then twice a day as needed for persistent chest discomfort. Prov:INA JONES M.D. 10/02/16 Reported Medications Fluticasone Propionate* (Fluticasone Propionate* Nasal) 50 Mcg/[place] - 16 Gm [place].susp, 1 SPRAY NASAL BID, #1 BOTTLE TO EACH NOSTRIL 10/01/16 Discontinued Reported Medications Ranitidine Hcl* (Zantac*) 150 Mg Tablet, 150 MG PO BID, #60 TAB 10/01/16 Prednisone* (Prednisone*) 10 Mg Tab, 10 MG PO DAILY, TAB 3TAB-2 DAYS, 2TAB-2 DAYS, 1TAB-2 DAYS 10/01/16 Amoxicillin* (Amoxicillin*) 500 Mg Cap, 500 MG PO TID, #30 CAP 10/01/16 Discontinued Scripts Aspirin* (Aspirin*) 325 Mg Tablet, 325 MG PO DAILY, #7 TAB Prov:NEVIN OLIVEIRA MD 09/17/16 Follow-up Plan Authorization obtained for appointment with Dr. Espinoza Montoya ([phone]) in the next week, in addition to Dr. Walton Pending Labs Laboratory Tests Test 10/01/16 18:00 10/01/16 22:10 10/02/16 06:30 10/02/16 09:29 Lactic Acid Level 2.3mmol/L (0.5-2.2) 1.5mmol/L (0.5-2.2) Sodium Level 141mmol/L (135-144) Potassium Level 3.3mmol/L (3.5-5.1) Chloride Level 99mmol/L (97-110) Carbon Dioxide Level 30mmol/L (21-31) Anion Gap 15 (8-16) Blood Urea Nitrogen 13mg/dl (7-20) Creatinine 0.65mg/dl (0.61-1.24) Glucose Level 126mg/dl (70-220) Uric Acid 4.0mg/dl (3.1-7.9) Calcium Level 9.1mg/dl (8.4-10.2) Magnesium Level 2.0mg/dl (1.7-2.5) Total Bilirubin 0.1mg/dl (0.2-1.3) Direct Bilirubin 0.00mg/dl (0.00-0.20) Indirect Bilirubin 0.1mg/dl (0-1.1) Aspartate Amino Transf (AST/SGOT) 104IU/L (15-46) Alanine Aminotransferase (ALT/SGPT) 214IU/L (13-69) Alkaline Phosphatase 133IU/L (42-121) Creatine Kinase < 20IU/L (23-200) Creatine Kinase Index Creatinine Kinase MB (Mass) < 0.22ng/ml (0.0-2.4) Troponin I < 0.012ng/ml (0.00-0.12) B-Type Natriuretic Peptide 492PG/ML (0-125) Total Protein 6.3g/dl (6.1-8.1) Albumin 3.1g/dl (3.3-4.9) Thyroid Stimulating Hormone (TSH) 2.650MIU/L (0.465-4.680) White Blood Count 13.910^3/ul (4.8-10.8) Red Blood Count 3.9510^6/ul (4.70-6.10) Hemoglobin 12.5g/dl (14.0-18.0) Hematocrit 37.3% (42.0-52.0) Mean Corpuscular Volume 94.4fl (82.0-101.0) Mean Corpuscular Hemoglobin 31.6pg (29.0-33.0) Mean Corpuscular Hemoglobin Concent 33.5g/dl (32.0-37.0) Red Cell Distribution Width 11.9% (11.5-14.5) Platelet Count 71358^3/UL (140-415) Mean Platelet Volume 9.6fl (7.4-10.4) Neutrophils % 68.9% (39.0-77.0) Lymphocytes % 22.7% (15.0-51.0) Monocytes % 5.4% (0.0-11.0) Eosinophils % 2.3% (0.0-7.0) Basophils % 0.2% (0.0-2.0) Nucleated Red Blood Cells % 0.0/100WBC (0.0-0.0) Neutrophils # 9.510^3/ul (1.6-7.5) Lymphocytes # 3.110^3/ul (0.8-2.9) Monocytes # 0.810^3/ul (0.3-0.9) Eosinophils # 0.310^3/ul (0.0-0.5) Basophils # 0.010^3/ul (0.0-0.1) Nucleated Red Blood Cells # 0.010^3/ul (0.0-0.0) Copies To: CC: DENISHA MARROQUIN MD, JOHN P. M.D. Oct 02, 2016 17:00
--- NOTE | 2016-10-02 17:01 | PDOCDIS ---
Discharge Instructions DIAGNOSIS Discharge Diagnosis: Pericarditis with pleural and pericardial effusions CONDITION Patient Condition: Good HOME CARE INSTRUCTIONS: Diet Instructions: RegularSpecial Diet: Regular ACTIVITY: Activity Restrictions: Slowly Increase Activity Activity Restrictions Comment: No smoking. Patient promises to stop smoking completely! FOLLOW UP/APPOINTMENTS Appointments Dr. Espinoza Montoya (Cardiology) in the next week Dr. Reed Walton in the next week. INA JONES M.D. Oct 02, 2016 17:01
[2016-10-02] MEDS ORDERED: COLC0.6T6 PO (17:03)
[2016-10-02] MEDS ORDERED: NAPR-260 PO (17:03)
[2016-10-02] MEDS ORDERED: FAMO20TA18 PO (17:03)
--- NOTE | 2016-10-02 17:06 | RADRPT ---
PROCEDURE: XR Chest. CLINICAL INDICATION: Pericarditis. Follow-up pleural effusions TECHNIQUE: PA and lateral views of the chest were obtained. COMPARISON: CT chest 10/01/2016 FINDINGS: The trachea central bronchi are patent. The cardiomediastinal silhouette is within normal limits, d ecreased compared to the prior CT. Compressive atelectasis of the left greater than right lower lob e is again noted. Blunting of the left greater than right costophrenic angles is consistent with bi lateral pleural effusions that to have not changed compared to the previous examination. No pulmonar y vascular congestion is present. The visualized osseous structures are intact. RPTAT:HJJR IMPRESSION: 1. Stable left larger than right pleural effusions compared to the CT chest 10/01/2016. 2. Slight interval decrease in cardiac silhouette size suggests a decrease in pericardial effusion. Physician Meg Date Time Electronically viewed and signed by Physician Meg on 10/02/2016 17:05 /
[2016-10-04 15:17] LABS: ANA SCREEN NEGATIVE (NEGATIVE)
== END 2016-10-02 18:25 | disposition home or self-care (01) ==
LOC: E/R 14:06 → INTOOBSV 17:01 → TEL 17:01
PROVIDERS: ADMIT Internal Medicine; ATTEND Internal Medicine
DX: I30.9 Acute pericarditis, unspecified (principal); J90 Pleural effusion, not elsewhere classified; R73.9 Hyperglycemia, unspecified; R74.0 Nonspecific elevation of levels of transaminase and lactic acid dehydrogenase [LDH]; Z79.899 Other long term (current) drug therapy
CPT/HCPCS: 36415; 71020; 71275; 80048; 80053; 80076; 81001; 82550; 82553; 83605; 83690; 83735; 83880; 84439; 84443; 84481; 84484; 84560; 85025; 85610; 85651; 85730; 86038; 86215; 86226; 86480; 87040; 87086; 93005; 93306; 96374; 96375; 99217; 99291; G0378; J0692; J3370; J7030; Q9967; 81003